=== PATIENT | male | born 2000 | race Caucasian/White ===

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

== ENCOUNTER 2021-07-14 10:01 | Emergency (ER) | payer BC ==
[~2021-07-14] VITALS: Ht 157.5 cm; Wt 48.5 kg
[2021-07-14 10:15] VITALS: BP 129/78
--- NOTE | 2021-07-14 10:21 | NUR ---
BIB MOM WITH INGROWN TOE NAIL. WAITING FOR
--- NOTE | 2021-07-14 10:27 | NUR ---
DR BRISENO AT BED SIDE FOR EVAL.
[2021-07-14] MEDS ORDERED: BACITRACIN ZINC OINT PACKET 1 EA PACKET TP ONE (11:00)
[2021-07-14] MEDS ORDERED: SULF1TAB48 GT (11:05)
[2021-07-14] MEDS ORDERED: MUPI22OI2 TP (11:05)
[2021-07-14] MEDS ORDERED: CEPH250S2 PO (11:05)
--- NOTE | 2021-07-14 11:06 | NUR ---
WOUND CLEANING AND DRESSING DONE BY MANAGER COMMUNITY DEVELOPMENT.
--- NOTE | 2021-07-14 11:18 | NUR ---
Patient discharged to home in stable condition. Written and verbal after care instructions given. Patient verbalizes understanding of instruction.
== END 2021-07-14 11:19 | disposition home or self-care (01) ==
LOC: ER 10:22
DX: L60.0 Ingrowing nail (principal); Z99.11 Dependence on respirator [ventilator] status; Z87.39 Personal history of other diseases of the musculoskeletal system and connective tissue
CPT/HCPCS: 11730; 99284; A6403